=== PATIENT | female | born 1995 | race Caucasian/White ===

== ENCOUNTER 2022-05-12 09:08 | Outpatient (CLI) | payer BC, SELFPAY ==
--- NOTE | 2022-05-12 09:15 | CRLHL7_ITS ---
For Patients: As a result of the Century Cures Act, medical imaging exams and procedure reports are released immediately into your electronic medical record. You may view this report before your referring provider. If you have questions, please contact your health care provider. INDICATION: First trimester scan, establish dates. COMPARISON: None. TECHNIQUE: Real-time moore-scale imaging of the pelvis was performed. FINDINGS: Sonographic imaging demonstrates a single living intrauterine gestation. The embryo demonstrates a regular cardiac rate measuring 179 beats per minute. The embryo`s crown-rump length measurement of 1.9 cm corresponds to a gestational age of 8 weeks 3 days with a sonographic due date of December 19, 2022. There is a normal-appearing yolk sac measuring 3.1 mm. There are no gross abnormalities noted within the embryo at this early state of development. The placenta has not yet developed. The gestational sac has a normal appearance. There may be minimal subchorionic hemorrhage inferior to the gestational sac measuring 3 x 7 x 8 mm. The amount of fluid within the sac appears appropriate for gestational age. The cervix is closed. The myometrium appears normal. The ovaries are of normal size. The right ovary measures 2.9 x 1.0 x 1.6 cm. The left ovary measures 3.5 x 1.9 x 2.0 cm. Small corpus luteum cyst of on the left. There are no suspicious fluid collections noted in the cul-de-sac. IMPRESSION: Normal first trimester OB ultrasound exam. Gestational age calculated at 8 weeks 3 days with a sonographic due date of December 19, 2022. Dictated by Sukhdev James MD @ 05/12/2022 3:48:14 PM (Electronically Signed)
== END 2022-05-12 09:09 | disposition home or self-care (01) ==
LOC: US 09:10
PROVIDERS: Visit Provider Registered Nurse
DX: Z34.91 Encounter for supervision of normal pregnancy, unspecified, first trimester (principal); Z3A.08 8 weeks gestation of pregnancy
CPT/HCPCS: 76817; 86703; 86803; 86850; 86900; 86901; 87086; 87340; 87491; 87591

== ENCOUNTER 2022-05-12 11:20 | Outpatient (CLI) | payer BC, SELFPAY | END 2022-05-12 11:21 | disposition home or self-care (01) | PROVIDERS: Visit Provider Registered Nurse | DX: Z34.90 Encounter for supervision of normal pregnancy, unspecified, unspecified trimester (principal) | CPT/HCPCS: 86592; 86762; 86787 ==

== ENCOUNTER 2022-05-28 20:33 | Emergency (ER) | payer BC, SELFPAY ==
[2022-05-28] VITALS (20 sets, daily range): BP systolic 98–115; BP diastolic 54–78; PULSE 67–95; RESP 16; TEMP 36.8; O2SAT 96–99
[2022-05-28 21:31] LABS: Appearance Urine Cloudy (Clear); Bilirubin Urine 1+ (Negative); Blood Urine 2+ (Negative); Color Urine Yellow (Yellow); Glucose Urine Negative (Negative); Ketones Urine 3+ (Negative); Leukocyte Esterase Urine Negative (Negative); Nitrite Urine Negative (Negative); Protein Urine 2+ (Negative); Specific Gravity Urine >= 1.030 (1.000-1.030)
[2022-05-28] MEDS: ONDANSETRON 2 MG/ML inj 4 MG IVP (21:32)
[2022-05-28] MEDS: 0.9 % SODIUM CHLORIDE 1000 ml 1,000 ML IV ×2 (21:32→22:35)
[2022-05-28 21:43] LABS: Bacteria Urine Moderate; Squamous Epithelial Cell Urine Many (None-Few)
[2022-05-28 21:44] LABS: Amorphous Sediment Urine Few
--- NOTE | 2022-05-28 23:27 | ED.NURSE ---
Pt states nausea is improved. Eating applesauce and requesting another cup.
[2022-05-29 00:01] VITALS: BP 107/67; PULSE 78; PULSE 80; O2SAT 97
[2022-05-29 00:15] VITALS: PULSE 82; O2SAT 97
--- NOTE | 2022-05-29 15:47 | ED.GENADULT ---
HPI - General Adult General Chief complaint: Nausea/Vomiting Stated complaint: 10w , extreme nausea Time Seen by Provider: 05/28/22 21:12 History of Present Illness HPI narrative: 26-year-old young woman presenting with partner to the emergency department complaint of nausea vomiting feeling faint. This is the 2nd time she would presented for fluids and had hoped to get them prior to the weekend. She is 10 weeks and has been struggling with nausea. Does happen to have a niece with some similar symptoms though in close contact. No fever. There was some spotting but thought to be normal apparently with check-in with OBGYN. His abdominal cramping as well. No dysuria or urgency. Probably some decreased urine out at this point. Has otherwise been struggling with some constipation and has initiated MiraLax on recommendations of OB provider. Does have some Zofran at home but thinks things got beyond that now. Related Data Home Medications Medication Instructions Recorded Confirmed docosahexaenoic acid 200 mg mg PO 05/12/22 05/29/22 capsule ( DHA) Previous Rx's Medication Instructions Recorded ondansetron 4 mg disintegrating 4 mg PO Q6H PRN nausea and 05/12/22 tablet vomiting #30 tabs Allergies Allergy/AdvReac Type Severity Reaction Status Date / Time amoxicillin AdvReac Severe Hives Verified 05/29/22 15:28 Penicillins AdvReac Severe Hives Verified 05/29/22 15:28 Review of Systems Status of ROS: Reports: 10 or more systems reviewed and unremarkable except as noted in History and below [facility] Social History Smoking Status: Never smoker Do you use any of these nicotine containing products: None Second hand tobacco smoke exposure: No How often do you have a drink containing alcohol: never AUDIT-C Alcohol total score: 0 Non-prescribed substance use: denies use Little interest or pleasure in doing things: more than half the days Feeling down, depressed, or hopeless: several days Exam Narrative: Exam Narrative: Pleasant. NAD. Does appear a little tired. Cranial nerves 2-12 to be intact. Face is flushed. Skin otherwise warm and dry. Wear noted edema. Well perfused. Lungs appear to be clear. Heart with mildly elevated rate perhaps in a regular rhythm. Abdomen with normoactive bowel sounds is soft mildly uncomfortable in the low mid pelvis. Oropharynx little sticky. Non erythematous. Neck is supple without lymphadenopathy. Const: Vital Signs, click to edit/add: Vital Signs - 24 hr 05/28/22 20:41 05/28/22 21:03 05/28/22 21:04 Temperature 98.3 F Pulse Rate 85 81 Pulse Rate [Pulse Oximeter] 90 Respiratory Rate 16 Blood Pressure 113/72 Blood Pressure [Le ft Upper Arm] 115/78 Pulse Oximetry 96 97 98 Oxygen Delivery Me thod Room Air 05/28/22 21:15 05/28/22 21:32 05/28/22 21:33 Temperature Pulse Rate 95 72 67 Pulse Rate [Pulse Oximeter] Respiratory Rate Blood Pressure 102/71 Blood Pressure [Le ft Upper Arm] Pulse Oximetry 97 99 99 Oxygen Delivery Me thod 05/28/22 21:34 05/28/22 21:45 05/28/22 22:00 Temperature Pulse Rate 79 82 73 Pulse Rate [Pulse Oximeter] Respiratory Rate Blood Pressure Blood Pressure [Le ft Upper Arm] Pulse Oximetry 99 98 98 Oxygen Delivery Me thod 05/28/22 22:01 05/28/22 22:15 05/28/22 22:30 Temperature Pulse Rate 77 82 89 Pulse Rate [Pulse Oximeter] Respiratory Rate Blood Pressure 106/70 Blood Pressure [Le ft Upper Arm] Pulse Oximetry 98 98 97 Oxygen Delivery Me thod 05/28/22 22:31 05/28/22 22:45 05/28/22 23:00 Temperature Pulse Rate 79 82 76 Pulse Rate [Pulse Oximeter] Respiratory Rate Blood Pressure 113/71 Blood Pressure [Le ft Upper Arm] Pulse Oximetry 97 98 98 Oxygen Delivery Me thod 05/28/22 23:01 05/28/22 23:15 05/28/22 23:30 Temperature Pulse Rate 73 92 82 Pulse Rate [Pulse Oximeter] Respiratory Rate Blood Pressure 98/54 L Blood Pressure [Le ft Upper Arm] Pulse Oximetry 99 99 99 Oxygen Delivery Me thod 05/28/22 23:31 05/28/22 23:45 05/29/22 00:01 Temperature Pulse Rate 90 85 78 Pulse Rate [Pulse Oximeter] Respiratory Rate Blood Pressure 99/58 L 107/67 Blood Pressure [Le ft Upper Arm] Pulse Oximetry 97 98 97 Oxygen Delivery Me thod 05/29/22 00:01 05/29/22 00:15 Temperature Pulse Rate 80 82 Pulse Rate [Pulse Oximeter] Respiratory Rate Blood Pressure Blood Pressure [Le ft Upper Arm] Pulse Oximetry 97 97 Oxygen Delivery Me thod Course Vital Signs Vital signs: Initial Vital Signs Temperature 98.3 F 05/28/22 20:41 Temperature Source Temporal Artery Scan 05/28/22 20:41 Pulse Rate 90 05/28/22 20:41 Respiratory Rate 16 05/28/22 20:41 Blood Pressure 115/78 05/28/22 20:41 Blood Pressure Mean 90 05/28/22 20:41 Blood Pressure Position Supine 05/28/22 20:41 Pulse Oximetry 96 05/28/22 20:41 Oxygen Delivery Method 05/28/22 20:41 Vital Signs Temperature 98.3 F 05/28/22 20:41 Pulse Rate 90 05/28/22 20:41 Respiratory Rate 16 05/28/22 20:41 Blood Pressure 115/78 05/28/22 20:41 Pulse Oximetry 96 05/28/22 20:41 Oxygen Delivery Method 05/28/22 20:41 Temperature 98.3 F 05/28/22 20:41 Pulse Rate 82 05/29/22 00:15 Respiratory Rate 16 05/28/22 20:41 Blood Pressure 107/67 05/29/22 00:01 Pulse Oximetry 97 05/29/22 00:15 Oxygen Delivery Method 05/28/22 20:41 Medical Decision Making MDM Narrative Medical decision making narrative: I think we can help with her to feel better. This might be a bug but is not inconsistent with what is been going on during . Otherwise I would see no red flags. Otherwise would collect a urinalysis. IVs established. Ordered for normal saline Zofran. Ultimately receives 2 L normal saline. Tolerating apple sauce and Ryland crackers. Feels she can return home. Urinalysis is concentrated with ketones white and red cells. In this setting I would wait for culture to be convincing to treat. Rose on board with this plan. See patient discharge plan Lab Data Lab results reviewed: Yes I reviewed the patient's lab results Labs: Lab Results 05/28/22 Range/Units 21:25 Urine Color Yellow (Yellow) Urine Appearance Cloudy A (Clear) Urine pH 6.0 (5.0-8.5) Ur Specific [place] >= 1.030 (1.000-1.030) Urine Protein 2+ A (Negative) Urine Glucose (UA) Negative (Negative) Urine Ketones 3+ A (Negative) Urine Blood 2+ A (Negative) Urine Nitrite Negative (Negative) Urine Bilirubin 1+ A (Negative) Urine Urobilinogen 1.0 (0.2-1.0) Ur Leukocyte Esterase Negative (Negative) Urine RBC 10-25 A (0-2) Urine WBC 10-25 A (0-5) Ur Squamous Epith Cells Many A (None-Few) Amorphous Sediment Few A (None) Urine Bacteria Moderate A (None) Discharge Plan Discharge Clinical Impression: Nausea and vomiting during , Dehydration Patient Disposition: Home w/ Parent or Adult Condition: Improved Additional Instructions: Try to stay ahead of this. Maybe try your Zofran 1st thing in the morning and then also before you get up try to get a little food in your stomach. Focus on hydration. Popsicles and Jell-O count for that. Return for intractable vomiting, worsening lightheadedness. Prescriptions: No Action DHA 200 mg capsule PO Hold Instructions: Order Change ondansetron 4 mg tablet,disintegrating 4 mg PO Q6H PRN (Reason: nausea and vomiting) Qty: 30 2RF Follow Up/Referrals: Provider,Not a Local [Primary Care Provider] - Stand Alone Forms: Gertrudeth Info Instructions
== END 2022-05-29 00:50 | disposition home or self-care (01) ==
PROVIDERS: Emergency Provider Family Medicine
DX: O21.9 Vomiting of pregnancy, unspecified (principal); E86.0 Dehydration
CPT/HCPCS: 81001; 87086; 96361; 96374; 99284; J2405; J7030

== ENCOUNTER 2022-09-19 08:56 | Emergency (ER) | payer BC, SELFPAY ==
[2022-09-19 09:12] VITALS: BP 122/77; PULSE 87; RESP 18; TEMP 36.6; O2SAT 96; BMI 32.8
--- NOTE | 2022-09-19 09:46 | ED_ITS ---
HPI - General Adult General Date Seen: 09/19/22 Chief complaint: Headache/Migraine Stated complaint: lightheaded,tingly, 27 weeks Time Seen by Provider: 09/19/22 09:15 Source: patient Mode of arrival: ambulatory Limitations: no limitations History of Present Illness HPI narrative: Patient is a 26-year-old female is 27 weeks presenting to emergency department for lightheadedness, nausea or, numbness to her face and left arm. Patient states his symptoms started roughly 30-45 minute prior to arrival. She is unable to say if it was acute or gradually worsening symptoms. Patient states she has had symptoms similar to this in the past several years ago. She states she has had ocular migraines in the past and have had these symptoms but does note this time the symptoms feels worse. Patient states this is the 1st episode in several years. She states her 1st left forearm feels mildly numb some numbness around her lips and nose. She also has some pain to her right eye but denies any vision changes. Patient also states she feels lightheaded and like she is going to fall asleep sitting in a chair. She also having some mild nausea but has not had any vomiting. Has not taken any medication for the nausea. Denies fevers, chills, abdominal pain, chest pain, shortness of breath, dysuria, difficulty urinating, constipation, diarrhea. Related Data Home Medications Medication Instructions Recorded Confirmed docosahexaenoic acid 200 mg mg PO 05/12/22 08/18/22 capsule ( DHA) aspirin 81 mg tablet,delayed 81 mg PO QDAY 06/09/22 09/19/22 release (Tamanna Low Dose Aspirin) Allergies Allergy/AdvReac Type Severity Reaction Status Date / Time bee venom protein (honey bee) Allergy Severe Anaphylaxis Verified 09/19/22 09:12 amoxicillin AdvReac Severe Hives Verified 09/19/22 09:12 Penicillins AdvReac Severe Hives Verified 09/19/22 09:12 Review of Systems Status of ROS: Reports: 10 or more systems reviewed and unremarkable except as noted in History and below [facility] Medical History (Updated 09/19/22 @ 11:32 by Chadd Muse, DO) Chronic low back pain ?M54.50 - Low back pain, unspecified (ICD-10) ?G89.29 - Other chronic pain (ICD-10) Social History Smoking Status: Never smoker Do you use any of these nicotine containing products: None Second hand tobacco smoke exposure: No How often do you have a drink containing alcohol: never AUDIT-C Alcohol total score: 0 Non-prescribed substance use: denies use Little interest or pleasure in doing things: more than half the days Feeling down, depressed, or hopeless: several days Exam Narrative: Exam Narrative: Const: Well-nourished, Well-developed, in mild distress Eyes: PERRL, no conjunctival injection, and symmetrical lids ENMT: Atraumatic external nose and ears. Moist mucous membranes. Neck: Symmetric, trachea midline, No thyromegaly. CVS: RRR, No murmurs or gallops. Peripheral pulses 2+ and equal in all extremities RESP: Unlabored respiratory effort. Clear to auscultation bilaterally. GI: Nontender/Nondistended, No rebound or guarding. MSK:Extremities w/o deformity, Normal Active ROM Skin: Warm, Dry. No rashes or lesions. Neuro: Normal Muscle tone, No focal neurological deficits. Cranial nerves 2-12 grossly intact, normal finger-nose, normal [id number], normal gait, muscles 5/5 upper and lower extremities bilaterally, normal sensation bilateral lower extremities. Does note decreased sensation in the left forearm compared to the right forearm. Bilateral upper arms have normal sensation Psych: Awake, Alert, & Oriented x3. Appropriate mood and affect. Const: Vital Signs, click to edit/add: Vital Signs - 24 hr 09/19/22 09:12 09/19/22 11:12 Temperature 97.9 F 97.1 F L Pulse Rate [Pulse Oximeter] 87 78 Respiratory Rate 18 18 Blood Pressure [[facility] Upper [facility]] 122/77 112/59 L Pulse Oximetry 96 98 Oxygen Delivery Me thod Room Air Room Air Course Vital Signs Vital signs: Initial Vital Signs Temperature 97.9 F 09/19/22 09:12 Temperature Source Temporal Artery Scan 09/19/22 09:12 Pulse Rate 87 09/19/22 09:12 Respiratory Rate 18 09/19/22 09:12 Blood Pressure 122/77 09/19/22 09:12 Blood Pressure Mean 92 09/19/22 09:12 Blood Pressure Position Sitting 09/19/22 09:12 Pulse Oximetry 96 09/19/22 09:12 Oxygen Delivery Method Room Air 09/19/22 09:12 Vital Signs Temperature 97.9 F 09/19/22 09:12 Pulse Rate 87 09/19/22 09:12 Respiratory Rate 18 09/19/22 09:12 Blood Pressure 122/77 09/19/22 09:12 Pulse Oximetry 96 09/19/22 09:12 Oxygen Delivery Method Room Air 09/19/22 09:12 Temperature 97.1 F L 09/19/22 11:12 Pulse Rate 78 09/19/22 11:12 Respiratory Rate 18 09/19/22 11:12 Blood Pressure 112/59 L 09/19/22 11:12 Pulse Oximetry 98 09/19/22 11:12 Oxygen Delivery Method Room Air 09/19/22 11:12 Medical Decision Making MDM Narrative Medical decision making narrative: Patient is a 26-year-old female who is 27 weeks presents in respective for lightheadedness and headache and numbness. Patient states she has had symptoms like this before several years ago when she would get ocular migraines. States this feels very similar but she does think it is worse than the 1 several years ago. She has had no complications with the so far. No other concerns at this time. CBC, CMP, urinalysis were ordered on this patient. Has resolved. Ob came down and did a monitor strip which showed no concerning abnormalities. Her neurologic exam is otherwise normal with only some mild numbness of the left forearm. It is unlikely to be stroke related considering the distribution. She has not showing signs of preeclampsia. Patient was given 1L of normal saline and Zofran for nausea. She was also given Tylenol for her headache. Upper returned showing no concerning abnormalities. After this she says her symptoms are feeling much better. She feels like she can go home. States she has follow-up with her OB next week. Differential Diagnosis Differential Diagnosis: Stroke, migraine, tension headache, electrolyte abnormalities, infection Lab Data Labs: Lab Results 09/19/22 09/19/22 Range/Units 09:30 09:45 WBC 13.11 H (4.50-11.00) K/uL RBC 3.80 L (4.00-5.20) m/uL Hgb 11.7 L (12.0-16.0) gm/dL Hct 34.5 (33.0-51.0) % MCV 91 (80-100) fL MCH 31 (26-34) pg MCHC 34 (32-36) gm/dL RDW Coeff of Jennifer 12.4 (11.5-15.5) % Plt Count 278 (140-440) K/uL Neut % (Auto) 73.9 H (42.0-72.0) % Lymph % (Auto) 18.8 L (20-44) % [place] % (Auto) 5.9 (0.0-11.0) % Eos % (Auto) 0.5 (0.0-7.0) % Baso % (Auto) 0.3 (0.0-3.0) % Neut # (Auto) 9.70 H (1.7-7.0) K/uL Lymph # (Auto) 2.50 (0.90-2.90) K/uL [place] # (Auto) 0.80 (0.00-0.90) K/UL Eos # (Auto) 0.10 (0.00-0.50) K/uL Baso # (Auto) 0.00 (0.00-0.30) K/uL Abs Immat Gran (auto) 0.10 (0.00-0.30) K/uL Imm/Tot Granulo (auto) 0.6 % Sodium 134 L (135-149) mmol/L Potassium 3.4 L (3.6-5.1) mmol/L Chloride 105 (96-114) mmol/L Carbon Dioxide 21 (20-32) mmol/L BUN 5 (5-24) mg/dL Creatinine 0.4 L (0.5-1.5) mg/dL Estimated Creat Clear 184.04 Estimated GFR 140 ml/min Glucose 85 (60-115) mg/dL Calcium 9.0 (8.4-10.6) mg/dL Total Bilirubin 0.3 (0.1-1.5) mg/dL AST 22 (12-35) U/L ALT 24 (4-35) U/L Alkaline Phosphatase 76 (40-150) U/L Total Protein 7.1 (6.0-8.3) g/dL Albumin 3.9 (3.3-5.0) g/dL Urine Color Yellow (Yellow) Urine Appearance Clear (Clear) Urine pH 7.0 (5.0-8.5) Ur Specific [place] 1.015 (1.000-1.030) Urine Protein Negative (Negative) Urine Glucose (UA) Negative (Negative) Urine Ketones Negative (Negative) Urine Blood Negative (Negative) Urine Nitrite Negative (Negative) Urine Bilirubin Negative (Negative) Urine Urobilinogen 0.2 (0.2-1.0) Ur Leukocyte Esterase Negative (Negative) Urine RBC 0-2 (0-2) Urine WBC 2-5 (0-5) Ur Squamous Epith Cells Moderate A (None-Few) Other Sediment FEW YEAST (None) Urine Bacteria Many A (None) Discharge Plan Discharge Clinical Impression: Migraine Patient Disposition: Home, Self-Care Condition: Improved Instructions: Migraine Headache (ED) Additional Instructions: 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 Take Tylenol for headache. Return for new or worsening symptoms. Prescriptions: No Action DHA 200 mg capsule PO Hold Instructions: Order Change aspirin [Tamanna Low Dose Aspirin] 81 mg tablet,delayed release (DR/EC) 81 mg PO QDAY Follow Up/Referrals: Maria Teresa Johnson PA-C [Primary Care Provider] - Stand Alone Forms: NTQ-Datath Info Instructions
[2022-09-19] MEDS: 0.9 % SODIUM CHLORIDE 1000 ml 1,000 ML IV (09:48)
[2022-09-19 09:49] LABS: Appearance Urine Clear (Clear); Bilirubin Urine Negative (Negative); Blood Urine Negative (Negative); Color Urine Yellow (Yellow); Glucose Urine Negative (Negative); Ketones Urine Negative (Negative); Leukocyte Esterase Urine Negative (Negative); Nitrite Urine Negative (Negative); Protein Urine Negative (Negative); Specific Gravity Urine 1.015 (1.000-1.030); Urobilinogen Urine 0.2 (0.2-1.0)
[2022-09-19 09:55] LABS: Basophils Percent Auto 0.3 % (0.0-3.0); Eosinophils Percent Auto 0.5 % (0.0-7.0); Hematocrit 34.5 % (33.0-51.0); Hemoglobin* 11.7 gm/dL (12.0-16.0); Immature Granulocytes Pct Auto 0.6 %; Lymphocytes Percent Auto 18.8 % (20-44); Mean Corpuscular HGB Conc 34 gm/dL (32-36); Mean Corpuscular Hemoglobin 31 pg (26-34); Mean Corpuscular Volume 91 fL (80-100); Monocytes Percent Auto 5.9 % (0.0-11.0); Neutrophils Percent Auto 73.9 % (42.0-72.0); Platelet Count* 278 K/uL (140-440); RDW Coefficient of Variation % 12.4 % (11.5-15.5); White Blood Count* 13.11 K/uL (4.50-11.00)
[2022-09-19 09:57] LABS: Slide Review Reflex No
[2022-09-19 10:00] LABS: Bacteria Urine Many; Other Sediment Urine FEW YEAST; RBC Urine 0-2 (0-2); Squamous Epithelial Cell Urine Moderate (None-Few)
[2022-09-19 10:13] LABS: Albumin* 3.9 g/dL (3.3-5.0); Chloride* 105 mmol/L (96-114)
[2022-09-19 10:14] LABS: Potassium* 3.4 mmol/L (3.6-5.1); Sodium* 134 mmol/L (135-149)
[2022-09-19 10:16] LABS: Alkaline Phosphatase* 76 U/L (40-150); Aspartate Amino Transferase* 22 U/L (12-35); Bilirubin Total* 0.3 mg/dL (0.1-1.5); Blood Urea Nitrogen* 5 mg/dL (5-24); Carbon Dioxide* 21 mmol/L (20-32); Creatinine* 0.4 mg/dL (0.5-1.5); Est. Creatinine Clearance* 184.04; Estimated Glomerular Filt Rate 140 ml/min; Glucose* 85 mg/dL (60-115); Total Protein* 7.1 g/dL (6.0-8.3)
[2022-09-19 10:17] LABS: Alanine Aminotransferase* 24 U/L (4-35)
[2022-09-19] MEDS: ACETAMINOPHEN 500 MG TABLET 1000 MG PO (10:30)
[2022-09-19] MEDS: ONDANSETRON 2 MG/ML inj 4 MG IVP (10:31)
--- NOTE | 2022-09-19 10:47 | PC.OBNST ---
NST Note NST Note Start: 09/19/22 10:28 Freq: ONCE Status: Active Protocol: Document 09/19/22 10:15 ELIJAH (Rec: 09/19/22 10:46 ELIJAH [id number]) NST Note 1 Para (# of births) 0 EDC 12/19/22 Gestational Age In Weeks & Days 27 Weeks & 0 Days Patient Presented with Complaint(s) of Other Other Complaints Pt. presents to ER with c/o numbness/ tingling in Left arm , mouth, and nose. Pt. states +FM, denies leaking of fluid, no vaginal bleeding. Denies RUQ pain, no increased swelling. Pt. states sporadic menstral cramping, denies at this time. Abdomen palpates soft. Pt. states eyeball [place]/ numbness. Pt. states she has a Hx of occular migraines (with similar symptoms) in the past , but has not had one in a very long time. Pt. getting IV fluids, labs, and US at bedside when NST was complete. Appropriate for Gestational Age Yes JOYCE Cerna Date 09/19/22 Appropriate for Gestational Age Yes JOYCE Peguero RN Date 09/19/22 OB NST charge No Complete NST Note via Write Note Yes The provider's electronic signature indicates the NST is reactive/appropriate for gestational age. *Note to provider: If an addendum is required, open the patient's chart and click on the note under the Nurse/Allied Health tab.
[2022-09-19 11:12] VITALS: BP 112/59; PULSE 78; RESP 18; TEMP 36.2; O2SAT 98
== END 2022-09-19 11:47 | disposition home or self-care (01) ==
PROVIDERS: Emergency Provider Student in an Organized Health Care Education/Training Program; PCP Physician Assistant
DX: G43.909 Migraine, unspecified, not intractable, without status migrainosus (principal); Z3A.27 27 weeks gestation of pregnancy
CPT/HCPCS: 36415; 59025; 80053; 81001; 85025; 87086; 96374; 99283; 99284; A9270; J2405; J7030

== ENCOUNTER 2022-09-29 12:49 | Outpatient (CLI) | payer BC, SELFPAY | END 2022-09-29 12:50 | disposition home or self-care (01) | LOC: NFLDREF 10-02 11:23 | PROVIDERS: PCP Physician Assistant; Referring Provider Physician Assistant; Visit Provider Obstetrics & Gynecology | DX: Z34.93 Encounter for supervision of normal pregnancy, unspecified, third trimester (principal); Z3A.28 28 weeks gestation of pregnancy | CPT/HCPCS: 86592 ==

== ENCOUNTER 2022-10-19 13:00 | Outpatient (CLI) | payer BC, SELFPAY | END 2022-10-19 13:01 | disposition home or self-care (01) | PROVIDERS: PCP Physician Assistant; Visit Provider Obstetrics & Gynecology | DX: Z34.93 Encounter for supervision of normal pregnancy, unspecified, third trimester (principal); Z3A.30 30 weeks gestation of pregnancy | CPT/HCPCS: 87086 ==

== ENCOUNTER 2022-10-27 13:56 | Outpatient (CLI) | payer BC, SELFPAY ==
--- NOTE | 2022-10-27 | CRLHL7_ITS ---
For Patients: As a result of the Century Cures Act, medical imaging exams and procedure reports are released immediately into your electronic medical record. You may view this report before your referring provider. If you have questions, please contact your health care provider. INDICATION: Third trimester scan, evaluate growth. COMPARISON: 07/28/22 TECHNIQUE: Real time moore scale imaging of the fetus was performed. FINDINGS: Sonographic imaging demonstrates a single living intrauterine gestation. Fetus demonstrates a regular cardiac rate of 152 beats per minute. Fetus has a vertex position. The placenta lies posteriorly. Amniotic fluid volume appears normal and there is a single deepest vertical pocket: 6.9 cm. The estimated weight is 2181gm which lies at the 71st %. On the prior OB ultrasound exam dated 07/28/22 the estimated weight was at the 95th%. BPD 97th percentile. HC 77th percentile. AC 71st percentile. FL 46th percentile. The HC/AC ratio measures 1.07 range (0.95-1.11). IMPRESSION: Left renal pelvis measures 12 millimeters, right renal pelvis measures 5 millimeters. follow-up of the left renal pelvis recommended. Sonographic gestational age 34 weeks 0 days and sonographic due date 12/08/2022. Sonographic age 11 days ahead of the clinical age. Estimated weight 71st percentile. Abdominal circumference 71st percentile. Dictated by Dusty Major MD @ 10/27/2022 3:04:07 PM (Electronically Signed)
== END 2022-10-27 13:57 | disposition home or self-care (01) ==
LOC: US 13:56
PROVIDERS: Visit Provider Obstetrics & Gynecology
DX: Z34.93 Encounter for supervision of normal pregnancy, unspecified, third trimester (principal); Z3A.34 34 weeks gestation of pregnancy
CPT/HCPCS: 76816

== ENCOUNTER 2022-10-31 17:09 | Outpatient (CLI) | payer BC, SELFPAY ==
[2022-10-31 17:15] VITALS: PULSE 78; O2SAT 99
--- NOTE | 2022-10-31 17:17 | US_ITS ---
Final Report Patient: ESPERANZA COATS Facility:?[facility] Patient ID:?[id number] Site Patient ID:?[id number]. Site :?[id number] Study:?US OB Pelvis BPP-10/31/2022 11:08:05 PM Ordering Physician:HERMELINDO SARMIENTO Final Report: INDICATION: Nonreassuring nonstress test, 33 weeks 0 days gestation TECHNIQUE: Ultrasound OB pelvis transabdominal. Real-time moore-scale imaging of the fetus was performed with color Doppler and spectral Doppler analysis of the umbilical artery without stress testing. COMPARISON: October 27, 2022 FINDINGS: Sonographic imaging demonstrates a single living intrauterine gestation. Fetus demonstrates a regular cardiac rate of 162 beats per minute. Fetus has a vertex orientation. The placenta lies posterior. Amniotic fluid volume appears normal with an SDP of 6.3 cm. motion and tone were observed. No breathing activity identified. IMPRESSION: Single viable intrauterine with a biophysical profile 6/8. No breathing activity identified. Dictated by Cary Reece MD @ 10/31/2022 11:49:27 PM (Electronic Signature)
--- NOTE | 2022-10-31 17:17 | US_ITS ---
Final Report Patient: ESPERANZA COATS Facility:?[facility] Patient ID:?[id number] Site Patient ID:?[id number]. Site :?[id number] Study:?US OB Pelvis BPP-10/31/2022 11:08:05 PM Ordering Physician:HERMELINDO SARMIENTO Final Report: INDICATION: Nonreassuring nonstress test, 33 weeks 0 days gestation TECHNIQUE: Ultrasound OB pelvis transabdominal. Real-time moore-scale imaging of the fetus was performed with color Doppler and spectral Doppler analysis of the umbilical artery without stress testing. COMPARISON: October 27, 2022 FINDINGS: Sonographic imaging demonstrates a single living intrauterine gestation. Fetus demonstrates a regular cardiac rate of 162 beats per minute. Fetus has a vertex orientation. The placenta lies posterior. Amniotic fluid volume appears normal with an SDP of 6.3 cm. motion and tone were observed. No breathing activity identified. IMPRESSION: Single viable intrauterine with a biophysical profile 6/8. No breathing activity identified. Dictated by Cary Reece MD @ 10/31/2022 11:49:27 PM (Electronic Signature)
[2022-10-31 17:29] VITALS: PULSE 101; O2SAT 100
[2022-10-31 17:34] VITALS: PULSE 90; O2SAT 99
[2022-10-31 17:39] VITALS: PULSE 92; O2SAT 99
[2022-10-31 17:44] VITALS: PULSE 90; O2SAT 98
[2022-10-31 17:58] VITALS: BP 104/57; PULSE 80; RESP 16; TEMP 37.1
--- NOTE | 2022-10-31 19:40 | PC.OBNST ---
NST Note NST Note Start: 10/31/22 17:17 Freq: ONCE Status: Active Protocol: Document 10/31/22 19:00 KYLAHRola (Rec: 10/31/22 19:40 TRUDYELIZABETH [id number]) NST Note 1 Para (# of births) 0 EDC 12/19/22 Gestational Age In Weeks & Days 33 Weeks & 0 Days High Risk Factors Diabetes - Gestational Diet Controlled Patient Presented with Complaint(s) of Other Other Complaints Failed NST in [facility], sent to Center for further evaluation. Audible Irregular FHT noted. Indeterminant, Cat 2 tracing, 0/2 for NST. BPP 6/ 8 (no breathing) Reactive No Appropriate for Gestational Age No JOYCE Cerna Date 10/31/22 Reactive No Appropriate for Gestational Age No RN viewed and aware Date 10/31/22 OB NST charge Yes Complete NST Note via Write Note Yes The provider's electronic signature indicates the NST is reactive/appropriate for gestational age. *Note to provider: If an addendum is required, open the patient's chart and click on the note under the Nurse/Allied Health tab.
--- NOTE | 2022-10-31 19:54 | P.OBLDTN_ITS ---
OB - Triage/Final Diagnosis Visit Information Date Seen: 10/31/22 Date of evaluation: 10/31/22 Narrative: The patient is a 27 year old 1 para 0 at 33 weeks gestation by LMP, who presents for extended monitoring and BPP following nonreactive NST in [facility]. Fetus is extremely active. complicated by diet-controlled GDM. Patient also has perinatology consultation pending November 17 due to dilated left renal pelvis (12 mm). Reason for evaluation: other Evaluation Vital signs: Vital Signs - 24 hr 10/31/22 17:15 10/31/22 17:29 10/31/22 17:34 Temperature Pulse Rate Respiratory Rate Blood Pressure Pulse Oximetry 99 100 99 10/31/22 17:39 10/31/22 17:44 10/31/22 17:58 Temperature Pulse Rate Respiratory Rate Blood Pressure 104/57 L Pulse Oximetry 99 98 10/31/22 17:58 10/31/22 17:58 10/31/22 17:58 Temperature 98.8 F Pulse Rate 80 Respiratory Rate 16 Blood Pressure Pulse Oximetry Comments: Formal BPP 08/17 (2 off for lack of breathing movements). Prior to that, I had done an ultrasound at the bedside at which time sustained breathing was present, along with gross body movements and flexion/extension movements. 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 Follow up for NST + BPP on 11/01/22.
== END 2022-10-31 19:30 | disposition home or self-care (01) ==
LOC: OB OUT 17:10 → OB 17:10
PROVIDERS: Visit Provider Obstetrics & Gynecology
DX: O24.419 Gestational diabetes mellitus in pregnancy, unspecified control (principal); Z3A.33 33 weeks gestation of pregnancy
CPT/HCPCS: 59025; 76819; 99213

== ENCOUNTER 2022-11-01 15:45 | Outpatient (CLI) | payer BC, SELFPAY ==
--- NOTE | 2022-11-01 16:00 | CRLHL7_ITS ---
For Patients: As a result of the Cures Act, medical imaging exams and procedure reports are released immediately into your electronic medical record. You may view this report before your referring provider. If you have questions, please contact your health care provider. INDICATION: Gestational diabetes. Nonreassuring nonstress test yesterday. COMPARISON: Biophysical profile from yesterday. FINDINGS: Transabdominal examination of the is performed. A single intrauterine gestation is seen in cephalic presentation. Cardiac activity is irregular with decelerations from 127 beats per minute to 60 beats per minute. This is new compared to the previous study. The placenta is posterior and is free of the cervical os. The amniotic fluid volume is normal. The DVP is normal at 5.7 cm. The biophysical profile score is 8/8 with no points off. This is improved from the previous study with documented breathing movements. IMPRESSION: Single intrauterine gestation in cephalic presentation. New irregular cardiac rhythm with decelerations. Normal DVP at 5.7 cm, unchanged from the previous study. Normal biophysical profile score of 8/8. Dictated by Zeyad Espinoza MD @ 11/01/2022 5:56:51 PM (Electronically Signed)
== END 2022-11-01 15:46 | disposition home or self-care (01) ==
PROVIDERS: Visit Provider Obstetrics & Gynecology
DX: O24.419 Gestational diabetes mellitus in pregnancy, unspecified control (principal); O36.8390 Maternal care for abnormalities of the fetal heart rate or rhythm, unspecified trimester, not applicable or unspecified; Z3A.00 Weeks of gestation of pregnancy not specified
CPT/HCPCS: 76819

== ENCOUNTER 2022-11-10 07:13 | Outpatient (CLI) | payer BC, SELFPAY ==
--- NOTE | 2022-11-10 07:15 | CRLHL7_ITS ---
For Patients: As a result of the Century Cures Act, medical imaging exams and procedure reports are released immediately into your electronic medical record. You may view this report before your referring provider. If you have questions, please contact your health care provider. INDICATION: Gestational diabetes COMPARISON: 11/01/2022 TECHNIQUE: Real time moore scale imaging of the fetus was performed. Without non-stress testing. FINDINGS: Sonographic imaging demonstrates a single living intrauterine gestation. Fetus demonstrates a regular cardiac rate of 154 beats per minute. Fetus has a vertex position. The amniotic fluid volume appears normal and there is a single deepest pocket measurement of 4.6 cm. The fetus was active and demonstrated normal breathing movements. There was normal flexion and extension of the trunk and extremities. Bilateral pelviectasis is present measuring 4.6 millimeters on the right and 1.1 cm on the left. IMPRESSION: Normal biophysical profile score of 8 out of 8. Left renal pelviectasis measuring 1.1 cm. follow-up recommended. Dictated by Dusty Major MD @ 11/10/2022 8:23:08 AM (Electronically Signed)
== END 2022-11-10 07:14 | disposition home or self-care (01) ==
LOC: US 07:14
PROVIDERS: PCP Family Medicine; Visit Provider Obstetrics & Gynecology
DX: O24.419 Gestational diabetes mellitus in pregnancy, unspecified control (principal)
CPT/HCPCS: 76819; 86235

== ENCOUNTER 2022-11-17 13:45 | Outpatient (CLI) | payer BC, SELFPAY ==
--- NOTE | 2022-11-17 14:00 | CRLHL7_ITS ---
For Patients: As a result of the Century Cures Act, medical imaging exams and procedure reports are released immediately into your electronic medical record. You may view this report before your referring provider. If you have questions, please contact your health care provider. INDICATION: Gestational diabetes COMPARISON: 11/10/2022 TECHNIQUE: Real time moore scale imaging of the fetus was performed. Without non-stress testing. FINDINGS: Sonographic imaging demonstrates a single living intrauterine gestation. Fetus demonstrates a regular cardiac rate of 137 beats per minute. Fetus has a vertex position. The amniotic fluid volume appears normal and there is a single deepest pocket measurement of 4.8 cm. The fetus was active and demonstrated normal breathing movements. There was normal flexion and extension of the trunk and extremities. IMPRESSION: Normal biophysical profile score of 8 out of 8. Dictated by Dusty Major MD @ 11/17/2022 2:23:07 PM (Electronically Signed)
== END 2022-11-17 13:46 | disposition home or self-care (01) ==
LOC: US 13:45
PROVIDERS: PCP Family Medicine; Visit Provider Obstetrics & Gynecology
DX: O24.419 Gestational diabetes mellitus in pregnancy, unspecified control (principal)
CPT/HCPCS: 76819; 87081; 87653

== ENCOUNTER 2022-11-24 08:03 | Outpatient (CLI) | payer BC, SELFPAY ==
--- NOTE | 2022-11-24 08:15 | CRLHL7_ITS ---
For Patients: As a result of the Century Cures Act, medical imaging exams and procedure reports are released immediately into your electronic medical record. You may view this report before your referring provider. If you have questions, please contact your health care provider. INDICATION: Gestational diabetes TECHNIQUE: Real time moore scale imaging of the fetus was performed. COMPARISON: 11/17/2022 FINDINGS: Sonographic imaging demonstrates a single living intrauterine gestation. Fetus demonstrates a regular cardiac rate of 152 beats per minute. Fetus has a vertex position. The placenta lies posteriorly. Amniotic fluid volume appears normal and there is a single deepest pocket of 4.2 cm. The estimated weight is 3116gm which lies at the 72nd %. On the prior OB ultrasound dated 10/27/2022 the estimated weight was at the 71st percentile. Left renal pelvis measures 13 millimeters. Right renal pelvis measures 4 millimeters. The fetus was active and demonstrated normal breathing movements. There was normal flexion and extension of the trunk and extremities. IMPRESSION: Normal biophysical profile score 8/8. Sonographic gestational age 37 weeks 3 days and sonographic due date 12/12/2022. Sonographic age is 7 days ahead of the clinical age. Estimated weight 72nd percentile. Abdominal circumference 76th percentile. renal pelviectasis on the left measuring 13 millimeters. On the prior study 10/27/2022, the renal pelvis measured 12 millimeters. follow-up recommended. Dictated by Dusty Major MD @ 11/24/2022 11:42:21 AM (Electronically Signed)
== END 2022-11-24 08:04 | disposition home or self-care (01) ==
LOC: US 08:03
PROVIDERS: PCP Family Medicine; Visit Provider Obstetrics & Gynecology
DX: O24.419 Gestational diabetes mellitus in pregnancy, unspecified control (principal); Z3A.37 37 weeks gestation of pregnancy
CPT/HCPCS: 76816; 76819

== ENCOUNTER 2022-12-01 13:55 | Outpatient (CLI) | payer BC, SELFPAY ==
--- NOTE | 2022-12-01 14:00 | CRLHL7_ITS ---
For Patients: As a result of the Century Cures Act, medical imaging exams and procedure reports are released immediately into your electronic medical record. You may view this report before your referring provider. If you have questions, please contact your health care provider. INDICATION: Gestational diabetes COMPARISON: 11/24/2022 TECHNIQUE: Real time moore scale imaging of the fetus was performed. Without non-stress testing. FINDINGS: Sonographic imaging demonstrates a single living intrauterine gestation. Fetus demonstrates a regular cardiac rate of 147 beats per minute. Fetus has a vertex position. The amniotic fluid volume appears normal and there is a single deepest pocket measurement of 6.4 cm. The fetus was active and demonstrated normal breathing movements. There was normal flexion and extension of the trunk and extremities. IMPRESSION: Normal biophysical profile score of 8 out of 8. Dictated by Dusty Major MD @ 12/04/2022 8:26:38 AM (Electronically Signed)
== END 2022-12-01 13:56 | disposition home or self-care (01) ==
PROVIDERS: PCP Family Medicine; Visit Provider Obstetrics & Gynecology
DX: O24.419 Gestational diabetes mellitus in pregnancy, unspecified control (principal)
CPT/HCPCS: 76819

== ENCOUNTER 2022-12-08 07:04 | Outpatient (CLI) | payer BC, SELFPAY ==
--- NOTE | 2022-12-08 07:15 | CRLHL7_ITS ---
For Patients: As a result of the Century Cures Act, medical imaging exams and procedure reports are released immediately into your electronic medical record. You may view this report before your referring provider. If you have questions, please contact your health care provider. INDICATION: Gestational diabetes COMPARISON: 12/01/2022 TECHNIQUE: Real time moore scale imaging of the fetus was performed. Without non-stress testing. FINDINGS: Sonographic imaging demonstrates a single living intrauterine gestation. Fetus demonstrates a regular cardiac rate of 142 beats per minute. Fetus has a vertex position. The amniotic fluid volume appears normal and there is a single deepest pocket measurement of 6.4 cm. The fetus was active and demonstrated normal breathing movements. There was normal flexion and extension of the trunk and extremities. Left renal pelviectasis measuring 1.1 cm. IMPRESSION: Normal biophysical profile score of 8 out of 8. Left renal pelviectasis which should be followed up after . Dictated by Dusty Major MD @ 12/08/2022 3:54:41 PM (Electronically Signed)
== END 2022-12-08 07:05 | disposition home or self-care (01) ==
LOC: US 07:04
PROVIDERS: PCP Family Medicine; Visit Provider Obstetrics & Gynecology
DX: O24.419 Gestational diabetes mellitus in pregnancy, unspecified control (principal)
CPT/HCPCS: 76819

== ENCOUNTER 2022-12-12 15:50 | Inpatient (IN) | payer BC, SELFPAY ==
[2022-12-12] VITALS (12 sets, daily range): BP systolic 124–128; BP diastolic 76–78; PULSE 64–104; RESP 16; TEMP 36.6–36.8; O2SAT 98–99; BMI 33.3
[2022-12-12 17:41] LABS: Basophils Percent Auto 0.3 % (0.0-3.0); Eosinophils Percent Auto 0.3 % (0.0-7.0); Hematocrit 33.4 % (33.0-51.0); Hemoglobin* 11.3 gm/dL (12.0-16.0); Immature Granulocytes Pct Auto 0.3 %; Lymphocytes Percent Auto 22.5 % (20-44); Mean Corpuscular HGB Conc 34 gm/dL (32-36); Mean Corpuscular Hemoglobin 29 pg (26-34); Mean Corpuscular Volume 87 fL (80-100); Monocytes Percent Auto 8.6 % (0.0-11.0); Platelet Count* 246 K/uL (140-440); RDW Coefficient of Variation % 12.8 % (11.5-15.5); Red Blood Count 3.85 m/uL (4.00-5.20); White Blood Count* 11.93 K/uL (4.50-11.00)
[2022-12-12 17:45] LABS: Slide Review Reflex No
[2022-12-12] MEDS: miSOPROStoL 25 MCG/0.25 TABLET VAGINAL ×2 (18:16→21:00)
--- NOTE | 2022-12-12 22:03 | P.LDBA_ITS ---
Subjective History of Present Illness Time Seen by Provider: 16:45 Date Seen: 12/12/22 Narrative: Patient is being admitted to Labor and Delivery for cervical ripening in preparation for induction of labor. She is a 27 year old at 39 0/7 weeks gestation. Her full history and physical was dictated by Dr. Valencia on 12/01/2022. Please see this for details. Specific Issues/Plans : Erick. Baby: Female. 1. N+V: Zofran helpful. Rx submitted. IV fluids at first OB visit. 2. BMI 31.2 * Hgb A1C: 5.1% * Rec. baby ASA d/t nullip. and obesity. * 1hr GTT 09/29/22 @ 28wks: 158 * 3hr GTT: Vomited during- testing BS 4X daily 3. H/o depression. Doing well at first OB. PHQ=11 (r/t N+V). * Declined trial of SSRI. Was on sertraline years ago. * Not seeing therapist. * 09/29/22: Requested starting sertraline due to worsening anxiety and depression symptoms: PHQ-9: 14, RAMIRO-7: 10. * 09/29/22: Sertraline 50mg PO daily prescribed. * 10/27/22: PHQ 0, RAMIRO 1 4. Rubella non-immune. Recommend PP vaccine. 5. Varicella equivocal. Recommend PP vaccine. 6. [id number]: no increased risk of aneuploidy. Female. 7. 07/28/22: anatomic survey: * Bilateral renal pelvis dilation R: 4.4mm, L: 4.6mm no increased risk for aneuploidy on maternity 21 so additional aneuploidy screening was not recommended. * EFW 95% * Recommend 32 week ultrasound to follow-up bilateral renal pelvis dilation and EFW: scheduled 10/27/2022 * 10/27: left renal pelvic dilation 12mm. Referral placed to Perinatology * 11/06/22: Right renal pelvic (5.2 mm), left renal pelvic (11.3 mm). [facility] will arrange for Pediatric Urology consultation prior to delivery in order to establish a follow-up plan. Postnatally, the baby should undergo ultrasound and workup with pediatric urology, usually about 2-4 weeks after . 8. Last pap: 03/28/2021: WNL (no HPV ordered). Pap w/ HPV co-testing due 03/2024. 9. Gestational Diabetes 1 hour GTT: 153. Not tolerate/ did not finish her 3 hour GTT. 10/30/22: Submitted blood sugars through the portal. Not ideally controlled. Dr Patrick referred her to nutrition and endocrinology Nutrition consult: 10/30/21 Endocrine consult: 10/31/22, diet controlled, no medication recommended. Follow- up visit at 36 weeks with endocrinology Patient was initiated on 2x week testing, this was d/c after meeting with endocrinology 10. PAC?? * Patient had 6/10 BPP+NST on 10/31/2022 * Repeat in 24 hr 10/17 BPP but heart rate had noted to intermittently drop down to the 60s with spontaneous resolution. This was noted on US as well as NST * Discussed with MFM in [place], lori possible PAC? but they will see patient BRENDA (referral placed) * Will keep weekly BPP for now, pending MFM recs * Patient was evaluated by MFM, Dr. César Ramirez on 11/06/22. arrhythmia was not noted on the ultrasound during that evaluation. Currently, agrees with weekly BPP. If it does recur, please send Rose back to us for evaluation and characterization of the arrhythmia. However, if tachyarrhythmia or bradyarrhythmia are ever noted, please call for prompt eval. * Dr. Ramirez also recommended drawing a SSA/B antibody to assess for possible heart block. SSA/B normal on 11/10. Flu: completed -2021 Covid: completed, boosted x1 TDAP:10/13/22 H&P done 12/01 Plan 39 wk IOL (GDM, ? arrhythmia) - consented 12/01 OB - Problem Based A/P Additional Plan (1) arrhythmia affecting , antepartum: Status: Acute (2) Gestational diabetes: Status: Acute Plan Admit for cervical ripening. 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
[2022-12-12] MEDS: MORPHINE 10 MG/ML inj IM (22:17)
[2022-12-12] MEDS: hydrOXYzine pamoate 25 MG CAPSULE 100 MG PO (22:18)
[2022-12-13] VITALS (79 sets, daily range): BP systolic 102–139; BP diastolic 54–78; PULSE 60–174; RESP 16–17; TEMP 36.7–37.7; O2SAT 96–100
[2022-12-13] MEDS: LACTATED RINGERS 1000 ML 1,000 ML 999 ML IV (02:44)
[2022-12-13] MEDS: ROPIVACAINE 0.2% 100 ml 100 ML 12 MG EPIDURAL (03:20)
--- NOTE | 2022-12-13 03:30 | PM.ANBPRC ---
[facility] Medical History Anxiety and depression ?F41.9 - Anxiety disorder, unspecified (ICD-10) ?F32.A - Depression, unspecified (ICD-10) Chronic low back pain ?M54.50 - Low back pain, unspecified (ICD-10) ?G89.29 - Other chronic pain (ICD-10) Social History What is your current living situation?: I presently have a place to live Problems where you live: no known problems In the past 12 months, utilities in danger of being shut off: no In past 12 months, lack of transportation kept you from medical appts, meetings, work, or getting things needed for daily living: no In the past 12 mos, have been you worried that your food would run out before you had money to buy more?: never true In the past 12 mos, the food you bought just didn't last and you didn't have money to buy more?: never true Smoking Status: Never smoker Do you use any of these nicotine containing products: None Second hand tobacco smoke exposure: No How often do you have a drink containing alcohol: never AUDIT-C Alcohol total score: 0 Non-prescribed substance use: denies use How often does anyone, including family, friends and others, physically hurt you: never How often does anyone, including family, friends and others, insult or talk down to you: never How often does anyone, including family, friends and others, threaten you with harm: never How often does anyone, including family, friends and others, scream or curse at you: never Little interest or pleasure in doing things: not at all Feeling down, depressed, or hopeless: not at all Meds Home Medications and Allergies Home Medications Medication Instructions Recorded Confirmed Type aspirin 81 mg tablet,delayed 81 mg PO QDAY 06/09/22 12/12/22 History release (Tamanna Low Dose Aspirin) epinephrine 0.3 mg/0.3 mL 0.3 mg IM ONCE 10/31/22 12/12/22 History injection, auto-injector (EpiPen 2-Arsen) Allergies Allergy/AdvReac Type Severity Reaction Status Date / Time bee venom protein (honey bee) Allergy Severe Anaphylaxis Verified 12/08/22 07:47 amoxicillin AdvReac Severe Hives Verified 12/08/22 07:47 Penicillins AdvReac Severe Hives Verified 12/08/22 07:47 Results Labs Labs: Laboratory Results - last 24 hr 12/12/22 17:35 WBC 11.93 H RBC 3.85 L Hgb 11.3 L Hct 33.4 MCV 87 MCH 29 MCHC 34 RDW Coeff of Jennifer 12.8 Plt Count 246 Neut % (Auto) 68.0 Lymph % (Auto) 22.5 [place] % (Auto) 8.6 Eos % (Auto) 0.3 Baso % (Auto) 0.3 Neut # (Auto) 8.10 H Lymph # (Auto) 2.70 [place] # (Auto) 1.00 H Eos # (Auto) 0.00 Baso # (Auto) 0.00 Abs Immat Gran (auto) 0.00 Imm/Tot Granulo (auto) 0.3 Blood Type A Positive Antibody Screen NEGATIVE Vital Signs Vital Signs: Last Vital Signs Temp 98.2 F 12/13/22 01:20 Pulse 97 12/13/22 03:28 Resp 16 12/12/22 16:08 BP 108/54 L 12/13/22 03:28 Pulse Ox 99 12/13/22 03:27 Weight: 88.224 kg Height: 162.56 cm Anesthesia Procedures Epidural Insertion Patient Location: OB Start Time: 02:30 Stop Time: 03:30 Start Date: 12/13/22 Stop Date: 12/13/22 Reason for Block: procedure for pain Patient Position: sitting Performed By: Josefa Stafford Preanesthetic Checklist: IV checked, risks and benefits discussed, monitors and equipment checked, timeout performed and anesthesia consent Prep: chlorhexidine gluconate Monitoring: blood pressure monitoring, continuous pulse oximetry and heart rate Approach: midline Vertebral Space: lumbar (1-5) Epidural Technique: CHRISTOPHER saline Needle Type: Tuohy needle Injection Technique: continuous catheter Needle gauge: 17 Needle Length (cm): 10 cm Needle Insertion Depth (cm): 8 Catheter Gauge: 19 Catheter Type: multi-orifice Catheter at skin depth (cm): 14 Test Dose Result: negative and lidocaine 1.5% with epinephrine 1 to 200,000
[2022-12-13] MEDS: PHENYLEPHRINE 100 MCG/ML SYRINGE IVP (03:44)
--- NOTE | 2022-12-13 05:16 | P.OBPN_ITS ---
Subjective Date Seen: 12/13/22 Narrative: Patient currently comfortable with epidural, in flying cowgirl position. Had some vaginal bleeding with position change, dark red. Had 2 doses vaginal misoprostol for cervical ripening last evening. Membranes spontaneously ruptured at approximately 2230. Labor ensued. She requested epidural for pain control at 0300 this morning. Now, cervix is an anterior rim and fetus is in an OP position, per nursing staff. Occasional late decelerations of the heart rate tracing since epidural placement. Fluid bolus running now. 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 Will try some maternal position changes to encourage rotation from OP pos ition. Bleeding likely bloody show/cervical. Continue to monitor.
[2022-12-13] MEDS: LACTATED RINGERS 1000 ML 1,000 ML 125 ML IV ×3 (05:21→10:46)
--- NOTE | 2022-12-13 07:27 | PM.OBPNL ---
Subjective Time Seen by Provider: 07:00 Date Seen: 12/13/22 Narrative: Rose is a 27-year-old at 39 weeks 1 day gestational age ongoing induction of labor in the setting of GDM A1. course was otherwise complicated by suspected PACs, pyelectasis with low risk NIPT, obesity and history of depression. Labor course has included cytotec x2 and SROM. Patient has been complete since 523, OP position. She underwent a period of passive descent with position changes in an attempt to allow baby to rotate without success. Obix tracing reviewed - late decelerations noted between 0330 and 0700, now resolved with category 1 FHR tracing. Rose notes feeling fatigued due to lack of sleep overnight. She is otherwise feeling well. Objective Exam: 10/100/0 station, LOP position without significant asynclitism Vital Signs: Last Vital Signs Temp 98.8 F 12/13/22 07:14 Pulse 81 12/13/22 07:14 Resp 16 12/13/22 07:14 BP 123/56 L 12/13/22 07:14 Pulse Ox 98 12/13/22 07:22 Pelvic Exam Dilation (cm): 10 Effacement (%): 100 Station: 0 Contractions Monitor mode: External Contraction pattern: Regular Contraction intensity: Strong/Firm Assessment Station: 0 Amniotic Membrane Status: SROM Status: Category ll Heart Rate Baseline: 145 Monitor Accelerations: Present Monitor Decelerations: Late (not repetitive) Plan Plan: I presented to bedside with Dr. Dodd at 0700. We discussed options including trial of pushing or manual rotation followed by trial of pushing. Risk and benefits were reviewed of manual rotation, including pain, heart rate changes and cord prolapse. After a period of consideration, Rose elected to proceed. FHR was noted to be category 1 with baseline of 140bpm, moderate variability and accelerations present. My exam was noted to be 10/100/0 and LOP position prior to attempted rotation, the vertex was gently elevated and attempted to be rotated in a clockwise fashion. Resistance was encountered when attempted to turn beyond approximately 30 degrees on two attempts and variable deceleration was noted, thus we decided to discontinue rotation attempt. heart rate was category 1. We proceeded to trial of pushing with persistent OP position starting at 0745. Variable decelerations were noted with each contraction, with rapid recovery to a normal baseline with moderate variability. Plan to continue maternal pushing efforts for 1 hour and reassess. Rose notes feels very fatigued given lack of sleep overnight, is concerned she cannot do it. I do not feel delivery is medically indicated at this time, but this can certainly be revisited by maternal request. We reviewed medical indications for C/S would primarily include heart rate changes necessitating expedited delivery or arrest of descent. She has been complete for 2 hours at onset of pushing - given this and failed manual rotation, I would recommend 2 hours of pushing without descent prior to proceeding to C/s for arrest of descent. She expressed understanding and is agreeable to plan. - Next exam: 0845 at 1 hour of pushing time, sooner as clinically indicated - EFW 3116g (72%ile) by US on 11/24 - Intrapartum blood glucose monitoring per protocol - BT A+ - GBS negative
[2022-12-13] MEDS: OXYTOCIN 30 unit/500 ML in NS 30 UNIT/500 ML BAG IVPB (08:56)
--- NOTE | 2022-12-13 09:58 | PM.OBPNL ---
Subjective Time Seen by Provider: 09:40 Date Seen: 12/13/22 Narrative: Rose is a 27-year-old at 39 weeks 1 day gestational age ongoing induction of labor in the setting of GDM A1. course was otherwise complicated by suspected PACs, pyelectasis with low risk NIPT, obesity and history of depression. Labor course has included cytotec x2 and SROM. Patient has been complete since 523, OP position. She is persistently OP despite failed manual rotation and 2 hours of pushing. She is exhausted and ready to proceed to delivery if descent is not appreciated. Objective Exam: /0, ROP position. Developing caput. Vital Signs: Last Vital Signs Temp 98.9 F 12/13/22 09:10 Pulse 84 12/13/22 09:44 Resp 17 12/13/22 09:10 BP 105/57 L 12/13/22 09:44 Pulse Ox 98 12/13/22 07:27 Pelvic Exam Dilation (cm): 10 Effacement (%): 100 Station: 0 Contractions Monitor mode: External Contraction pattern: Regular Contraction intensity: Strong/Firm Assessment Station: 0 Amniotic Membrane Status: SROM Status: Category ll Heart Rate Baseline: 145 Monitor Accelerations: Present Monitor Decelerations: Late (not repetitive) Plan Plan: We discussed that unfortunately station remains at 0 with OP position despite 2 hours of pushing and failed manual rotation. She has been complete for 4 hours and is exhausted. Recommend proceeding to primary delivery in the setting of arrest of descent, OP position. Rose and Erick express understanding and are in agreement. We discussed risks, benefits and alternatives to surgery - including bleeding, infection and damage to surrounding structures. She is at increased risk of PPH and infection in particular given prolonged second stage and IOL. Active T/S and baseline hgb on file. Pitocin was turned off to allow period of washout. History of exercise induced asthma, very mild and intermittent but will avoid hemabate as first line agent. With regard to antibiotics, she has an allergy to penicillin/amoxicillin of hives. Plan to proceed with perioperative ancef and azithromycin after discussion with anesthesia due to low likelihood of crossreactivity. Patient in agreement. Plan: - Primary delivery, consent obtained - BT A+, active T/S on file - Perioperative ancef and azithromycin
[2022-12-13] MEDS: CEFAZOLIN 2 GM INJ IVP (10:25)
[2022-12-13] MEDS: AZITHROMYCIN 500 MG in 0.9 % SODIUM CHLORIDE 250 ml 250 ML 255 MG IVPB (10:25)
[2022-12-13] MEDS: KETOROLAC 30 MG/ML inj IVP ×3 (10:57→22:57)
--- NOTE | 2022-12-13 11:18 | P.ANES_ITS ---
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
--- NOTE | 2022-12-13 11:18 | P.ANES_ITS ---
Anesthesia Charges Start Date/Time Anesthesia Start Date: 12/13/22 Anesthesia Start Time: 10:17 Stop Date/Time Anesthesia Stop Date: 12/13/22 Anesthesia Stop Time: 11:46 Summary Emergency: MDA
--- NOTE | 2022-12-13 11:33 | P.OBPRC_ITS ---
Procedure Time Seen by Provider: 11:33 Date of procedure: 12/13/22 Pre-op diagnosis: Arrest of descent Post-op diagnosis: same Procedure Done: Global Will [facility] bill your pro fee for this procedure?: Yes Blood Loss Measurement Type: QBL (641) Bakri Used: No IV fluids (mL): 1,100 Surgeon: Kj Valencia MD Director Strategic Account Management: CARLOS Anesthesia type: Epidural Findings: Occiput posteior position Impacted head Extension of hysterotomy, left Normal uterus, tubes and ovaries Procedure Name: Primary delivery Procedure Description: DATE: 12/13/22 PREOPERATIVE DIAGNOSES: 1. Intrauterine at 39 1/7 weeks' gestation. 2. Arrest of descent 3. Persistent OP position 4. GDMA1 5. Exercise-induced asthma 6. Obesity 7. History of depression POSTOPERATIVE DIAGNOSES: Same as above. NAME OF PROCEDURE: Primary low transverse section. ANESTHESIA: Epidural. COMPLICATIONS: None. ESTIMATED BLOOD LOSS: 641 mL. DRAINS: Martinez to gravity. FINDINGS: Live-born female infant, cephalic presentation with OP position, impacted head, left-sided extension of the hysterotomy, Apgars 8 and 9 at 1 and 5 minutes respectively. weight 7lb 9 oz. Normal appearing uterus, tubes, and ovaries. PROCEDURE: After obtaining informed consent, the patient was taken to the operating room where spinal anesthesia was obtained and found to be adequate. She was prepared and draped in the normal sterile fashion in the dorsal supine position with a leftward tilt. Blood-tinged urine was noted in martinez bag prior to incision. A Pfannenstiel skin incision was made with a scalpel and carried down to the underlying layer of fascia. The fascia was incised in the midline and the incision extended laterally bluntly. The rectus muscles were then in the midline. The Adebayo O retractor was then placed into the incision. A bladder flap was developed with a [place] scissors and gentle traction. The lower uterine segment was then incised in a transverse fashion with the scalpel. Upon entry into the uterus, clear amniotic fluid was noted. The uterine incision was extended laterally with blunt finger fractionation. arm presented through hysterotomy, gently reduced. The 's head was delivered from OP position with gentle flexion and pressure in the setting of impacted head. The head was elevated to the level of the hysterotomy, then fundal pressure was applied to deliver the remainder of the 's body. The nose and mouth were suctioned with the bulb suction. The cord was doubly clamped and cut after delayed cord clamping, and the was handed off the field to Pediatrics for evaluation. The placenta was delivered spontaneously with umbilical cord traction and fundal massage. The uterus was cleared of all clots and debris. The uterine incision was inspected, where inferior extension from the left side of the hysterotomy was noted. The hysterotomy was sequentially elevated with ring forceps, to ensure both apexes could be visualized. The hysterotomy was reapproximated in a running locking fashion with a 0 vicryl suture. The uterus was then exteriorized and bladder flap was reduced to ensure it was free of primary hysterotomy closure. A 2nd layer of the same suture was used to imbricate in horizontal fashion. Excellent hemostasis was noted across the hysterotomy, with careful attention paid to the left sided extension. The uterus was reintroduced and excellent hemostasis was again noted. The gutters were cleared. All instruments and retractors were removed. The subfascial tissues were carefully inspected and hemostasis assured. The fascia was reapproximated in a running fashion with a looped 0 PDS. The subcutaneous tissues were copiously irrigated. Hemostasis was assured. The skin was closed in a subcuticular fashion with 3-0 Monocryl. LiquiBand and dressing were applied. The patient tolerated the procedure well. Sponge, lap, needle, and instrument counts were reported as correct x2. The patient was taken to the recovery room, awake, and in stable condition. She did receive 2 grams of IV Ancef and 500mg Azithromycin preoperatively. Complications: None Condition: stable Disposition: floor [place] total score - 1 minute: 8 total score - 5 minute: 9 OB Delivery Proc Additional Procedures Tubal Ligation at the time of : No Other: No
--- NOTE | 2022-12-13 11:50 | P.ANES_ITS ---
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
--- NOTE | 2022-12-13 11:51 | P.NB_ITS ---
Nerve Block Nerve Block Time Seen by Provider: 11:40 Date Seen: 12/13/22 Type of block requested by surgeon for post-operative analgesia: TAP Side: bilateral Time out performed: Yes Verification of patient name: Yes Verification of date of : Yes Name of person performing procedure: Josefa Stafford Assistants, if any: Continuous monitoring Was continuous monitoring of O2 sat, B/P, monitoring and evaluation advisor, recorded every 15 minutes?: Yes Procedure Checklist: sterile prep, needles and gloves Ultrasound guided. Images saved: Yes Medications given in 5ml increments after negative aspiration: Marcaine (30) %: 0.25 mL: 30 Needle gauge: 21 and Exparel (1.3) mL: 10 Needle gauge: 21 Patient tolerated procedure well: Yes Block Charges Block Charge (with Pro Fee): TAP Unilateral Use of Ultrasound Machine for Block: Yes- US Guidance/pain block
[2022-12-13] MEDS: ACETAMINOPHEN 500 MG TABLET 1000 MG PO ×2 (13:22→19:32)
[2022-12-14 00:10] VITALS: BP 111/67; PULSE 55; RESP 16; TEMP 36.6; O2SAT 97
[2022-12-14] MEDS: ACETAMINOPHEN 500 MG TABLET 1000 MG PO ×4 (01:32→21:10)
[2022-12-14 04:29] VITALS: BP 104/67; PULSE 71; RESP 16; TEMP 36.6; O2SAT 98
[2022-12-14] MEDS: KETOROLAC 30 MG/ML inj IVP ×3 (05:05→17:07)
[2022-12-14 06:56] LABS: Hemoglobin* 10.2 gm/dL (12.0-16.0)
[2022-12-14 07:16] VITALS: BP 108/72; PULSE 68; RESP 16; TEMP 36.8
--- NOTE | 2022-12-14 07:25 | PM.OBPNVD1 ---
OB - PN:Subj Subjective Time Seen by Provider: 07:25 Date Seen: 12/14/22 Interval history: Rose is a 27 y.o. who was admitted to L & D for IOL.? She had an uncomplicated primary .? ? ? Narrative: The patient feels well.? The pain is well controlled with current medications.? She has no new complaints.? She is breast feeding and reports things have been a struggle. She is having difficulty getting baby to latch. Baby also currently has an IV for low blood sugars.? the patient has done well.? Vitals have been stable.? She has remained afebrile.? Has a good appetite, is tolerating a general diet.? She is voiding without difficulty.? She is passing gas and has not had a bowel movement.? She is ambulating and denies any dizziness.? Has Small amount of rubra lochia.? OB - PN: Obj Exam Physical Exam: Vital signs: Temp Pulse Resp BP Pulse Ox O2 Del Method 98.3 F 68 16 108/72 98 Room Air 12/14/22 07:16 12/14/22 07:16 12/14/22 07:16 12/14/22 07:16 12/14/22 04:29 12/14/22 07:16 Narrative: VSS.? Afebrile? GENERAL APPEARANCE:? normal affect, alert, no distress? MOOD:? appropriate? HEENT: normocephalic, neck supple, full ROM? CHEST:? Symmetrical chest wall movement.? Normal respiratory effort.? Clear to auscultation? HEART:? regular rate and rhythm? ABDOMEN:? soft, non-tender. Uterine fundus is firm, 1 below Umbilicus, Midline and is appropriate for the stage of recovery.? Bowel sounds present.? EXTREMITIES:? normal and trace edema? SKIN: warm, dry.? Dressing on, clean/dry/intact.? No signs of infection noted.? Blood sugar WNL this AM. Urinary Catheter Management: Urethral: Cath placed during this visit: yes, but has since been removed by the nurse Reason for continuing: decision to DC catheter Removal date: 12/13/22 Removal time: 21:00 OB - PN: Obj Data Labs Labs: Laboratory Results - last 24 hr 12/14/22 06:48 Hgb 10.2 L OB - PN: A/P Delivery Assessment and Plan (1) Status post primary low transverse section: Status: Acute (2) state: Status: Acute (3) Lactating mother: Status: Acute (4) Gestational diabetes: Status: Acute Plan day: 1 Comments: Assessment/Plan? G 1 P 1 status post uncomplicated primary .? ?? 1.? Continue route PP cares? 2.? .? May see if desired? 3.? Anticipate discharge home tomorrow or the following day per pt preference? 4. GDM, blood sugar WNL this AM. ? 5. Depression & anxiety. Continue on current dose of sertraline. 6. Needs varicella and rubella vaccines.
[2022-12-14] MEDS: DOCUSATE SODIUM 100 MG CAPSULE PO (08:07)
[2022-12-14] MEDS: SERTRALINE 50 MG TABLET PO (08:08)
[2022-12-14] MEDS: MEASLES,MUMPS,RUBELLA VACC/PF 1 DOSE INJ 1 EACH SUBCUT (09:21)
[2022-12-14 16:00] VITALS: BP 123/81; PULSE 68; RESP 16; TEMP 36.8; O2SAT 98
[2022-12-15] VITALS: BP 116/75; PULSE 64; PULSE 68; RESP 16; TEMP 36.6; O2SAT 98
[2022-12-15] MEDS: IBUPROFEN 600 MG TABLET PO ×4 (00:07→18:02)
[2022-12-15] MEDS: ACETAMINOPHEN 500 MG TABLET 1000 MG PO ×2 (04:45→10:51)
[2022-12-15 07:40] VITALS: BP 120/77; PULSE 60; RESP 16; TEMP 36.6; O2SAT 99
--- NOTE | 2022-12-15 07:40 | PM.OBDSVD1 ---
DS: Providers Provider Date Seen: 12/15/22 Date of admission: 12/12/22 15:50 Primary care physician: Sarah Sosa MD Admitting Clinician: Adriana Dodd MD Attending Physician on discharge: Amari Pop CNM Date of Discharge: 12/15/22 DS: Diagnosis Discharge Diagnosis (1) care and examination immediately after delivery: Status: Acute (2) Lactating mother: Status: Acute (3) Status post primary low transverse section: Status: Acute Exam Narrative: Exam Narrative: VSS. ?Afebrile GENERAL APPEARANCE: ?normal affect, alert, no distress MOOD: ?appropriate HEENT: normocephalic, neck supple, full ROM CHEST: ?Symmetrical chest wall movement. ?Normal respiratory effort. ?Clear to auscultation HEART: ?regular rate and rhythm ABDOMEN: ?soft, non-tender. Uterine fundus is firm, 1 below Umbilicus, Midline and is appropriate for the stage of recovery. ?Bowel sounds present. EXTREMITIES: ?normal and no edema SKIN: warm, dry.?Incision clean/dry/well approximated. ?No signs of infection noted. Const: Vital Signs, click to edit/add: Vital Signs - 24 hr 12/14/22 16:00 12/15/22 00:00 Temperature 98.3 F 97.8 F Pulse Rate [Pulse Oximeter] 68 64 Pulse Rate [Right Blood Pressure Cuf f] 68 Respiratory Rate 16 16 Blood Pressure [Ri ght Arm] 123/81 116/75 Pulse Oximetry 98 98 Oxygen Delivery Me thod Room Air Room Air Documenting provider has reviewed patient's vital signs: yes OB - DS: Summary Hospital Course Hospital Course: Rose is a 27 y.o. G 1 P 1 who was admitted to L & D for cervical ripening in preparation for induction of labor for GDM. ?She had a section for failure of decent. She delivered a viable female The patient feels well. ?The pain is well controlled with current medications. ?She has no new complaints. ?She is breast feeding and reports things are going poorly. Her baby has had low blood sugars and is struggling to latch. the patient has done well.? Vitals have been stable.? She has remained afebrile.? Has a good appetite, is tolerating a general diet. ?She is voiding without difficulty.? She is passing gas and has not had a bowel movement.? She is ambulating and denies any dizziness.? Has small amount of rubra lochia. She is undecided on what to use for prevention. Problems: plan: Discharge home with baby. Follow up in 2 weeks and 6 weeks. , may see if needed Hgb 10.2. Depression & anxiety. Continue on current dose of sertraline. Needs varicella and rubella vaccines. Peripartum Data delivery method: Primary C/S; Labored Procedures: Procedures Operation Date: 12/13/22 10:15 Actual Procedure Side Surgeon p Section Jennifer Valencia MD Infant Gender: Female Discharge Plan: Home Status at Discharge Functional status at discharge: independent ambulation Overall status at discharge: patient is progressing back to baseline Time Spent with Patient Time attestation: Total time spent providing and/or coordinating discharge services: Time spent: Less than 30 minutes Discharge Plan Discharge Disposition: Home, Self-Care Date of Admission: 12/12/22 15:50 Attending Provider on Discharge: Amari Pop Primary Care Provider: Sarah Sosa Condition: Stable Anticipated Discharge Date/Time: 12/15/22 17:00 Discharge Medications: New docusate sodium 100 mg Capsule 100 mg PO DAILY Qty: 90 0RF ibuprofen 600 mg Tablet 600 mg PO Q6H PRN (Reason: Pain) Qty: 60 0RF oxycodone 5 mg Tablet 5 - 10 mg PO Q4H PRN (Reason: Pain) Qty: 20 0RF acetaminophen 500 mg Tablet 1,000 mg PO Q6H PRN (Reason: Pain) Qty: 0 0RF Continued sertraline 50 mg tablet 50 mg PO QDAY Qty: 90 0RF epinephrine [EpiPen 2-Arsen] 0.3 mg/0.3 mL auto-injector 0.3 mg IM ONCE Rx Instructions: as a single dose; may repeat once Discontinued aspirin [Tamanna Low Dose Aspirin] 81 mg tablet,delayed release (DR/EC) 81 mg PO QDAY (DME) lancets Misc See Rx Instructions .MEDSUPPLY Qty: 100 3RF Rx Instructions: Test blood sugar 4 times daily. (DME) Test Strips Misc See Rx Instructions .MEDSUPPLY Qty: 100 3RF Rx Instructions: Test blood sugar 4 times daily. (DME) lancets Misc See Rx Instructions .MEDSUPPLY Qty: 100 3RF Rx Instructions: Test blood sugar 4 times daily. (DME) Blood Glucose Meter Misc See Rx Instructions .MEDSUPPLY Qty: 1 0RF Rx Instructions: As directed (DME) Test Strips Misc See Rx Instructions .MEDSUPPLY Qty: 100 3RF Rx Instructions: Test blood sugar 4 times daily. (DME) Blood Glucose Meter Misc See Rx Instructions .MEDSUPPLY Qty: 1 0RF Rx Instructions: As directed Discharge Orders: Discharge Order (Routine); Ordered 12/15/22 Ordered By: Amari Pop Patient Education: OB Over the Counter Medication Information, OB /Breast Feeding Additional Instructions: Discharge instructions were reviewed with the patient including signs and symptoms of infection and home going medications Lifting Restrictions: 20 pounds for 6 weeks No not submerge incision under water X 2 weeks? Nothing vaginally for 6 weeks: no tampons or intercourse Do not drive while taking narcotic pain medication(s) Off Work or School for 8 weeks 2-week visit: incision check, discuss infant feeding concerns, review control options and screen for anxiety/depression. 6-week visit for an annual exam. consultation services are available to all mothers and babies for the first year after delivery.? To make an appointment, please call [phone]. Activity Level: Activity as Tolerated Discharge Diet: Regular Follow Up Appointments: [facility] [Provider Group] Forms: MyHealth Info Instructions
[2022-12-15] MEDS: DOCUSATE SODIUM 100 MG CAPSULE PO (08:52)
[2022-12-15] MEDS: SERTRALINE 50 MG TABLET PO (08:52)
[2022-12-15 15:50] VITALS: BP 121/80; PULSE 77; RESP 16; TEMP 36.5; O2SAT 99
== END 2022-12-15 20:00 | disposition home or self-care (01) | DRG 540 ==
PROVIDERS: Admitting Provider Obstetrics & Gynecology; PCP Family Medicine; Visit Provider Obstetrics & Gynecology
PROC: 10D00Z1 Extraction of Products of Conception, Low, Open Approach (ICD-10-PCS; CPT 59514; principal; 2022-12-13 10:00)
DX: O76 Abnormality in fetal heart rate and rhythm complicating labor and delivery (principal); O64.0XX0 Obstructed labor due to incomplete rotation of fetal head, not applicable or unspecified; O64.8XX0 Obstructed labor due to other malposition and malpresentation, not applicable or unspecified; O24.420 Gestational diabetes mellitus in childbirth, diet controlled; F32.A Depression, unspecified; O99.344 Other mental disorders complicating childbirth; F41.9 Anxiety disorder, unspecified; O99.214 Obesity complicating childbirth; E66.9 Obesity, unspecified; J45.990 Exercise induced bronchospasm; Z37.0 Single live birth; Z3A.39 39 weeks gestation of pregnancy
CPT/HCPCS: 01961; 01967; 01968; 36415; 59200; 76942; 82962; 85018; 85025; 86850; 86900; 86901; 88307; 99140; A9270; C9290; J0456; J0665; J0690; J1885; J2250; J2270; J2371; J2405; J2590; J2795; J3010; J7050; J7120; S0020

== ENCOUNTER 2023-01-23 07:57 | Outpatient (CLI) | payer BC, SELFPAY | END 2023-01-23 07:58 | disposition home or self-care (01) | LOC: NFLDREF 22:30 | PROVIDERS: PCP Family Medicine; Referring Provider Family Medicine; Visit Provider Physician Assistant | DX: O24.419 Gestational diabetes mellitus in pregnancy, unspecified control (principal) | CPT/HCPCS: 82947; 82950 ==

== ENCOUNTER 2023-09-04 09:21 | Outpatient (CLI) | payer BC, SELFPAY ==
[2023-09-04 13:54] LABS: Strep A DNA Probe* NOT DETECTED (Not Detectd)
== END 2023-09-04 09:22 | disposition home or self-care (01) ==
LOC: KYNREF 09:21
PROVIDERS: PCP Family Medicine; Visit Provider Nurse Practitioner Family
DX: J02.9 Acute pharyngitis, unspecified (principal)
CPT/HCPCS: 87651

== ENCOUNTER 2024-09-23 14:08 | Outpatient (CLI) | payer BC, SELFPAY | END 2024-09-23 14:09 | disposition home or self-care (01) | LOC: NFLDREF 14:08 | PROVIDERS: PCP Family Medicine; Visit Provider Physician Assistant | DX: F41.8 Other specified anxiety disorders (principal) | CPT/HCPCS: 84443 ==